=== PATIENT | female | born 1980 | race Caucasian/White ===

== ENCOUNTER 2019-10-16 16:43 | Emergency (ER) | payer BC ==
[~2019-10-16] VITALS: Ht 170.2 cm; Wt 97.5 kg
[2019-10-16 17:23] LABS: URINE BILIRUBIN NEGATIVE (Negative); URINE BLOOD 3+ (Negative); URINE CLARITY SL CLOUDY; URINE COLOR YELLOW; URINE GLUCOSE-RANDOM NEGATIVE (Negative); URINE KETONES NEGATIVE (Negative); URINE LEUKOCYTES-REFLEX NEGATIVE (Negative); URINE NITRITE-REFLEX NEGATIVE (Negative); URINE PROTEIN NEGATIVE (Negative); URINE SPECIFIC GRAVITY 1.025 (1.005-1.030); URINE UROBILINOGEN 0.2 E.U./dl (0.2-1.0)
[2019-10-16 17:29] LABS: BACTERIA-REFLEX >30 Many /HPF (None Seen); CASTS None Seen /LPF (None Seen); CRYSTALS None Seen /LPF (None Seen); MUCUS 0-3 Light strn/LPF (None Seen); SQUAMOUS 0-3 Few /LPF (0-3); URINE RBC >20 Many /HPF (0-2); URINE WBC-REFLEX 0-5 Rare /HPF (0-5)
[2019-10-16 18:17] LABS: INFLUENZA A ANTIGEN Negative (Negative); INFLUENZA B ANTIGEN Negative (Negative)
[2019-10-16 18:27] LABS: ABSOLUTE BASOPHILS 0.1 thou/uL (0.0-0.2); ABSOLUTE EOSINOPHILS 0.2 thou/uL (0.0-0.7); ABSOLUTE LYMPHOCYTES 2.5 thou/uL (0.8-5.3); ABSOLUTE MONOCYTES 0.8 thou/uL (0.0-1.2); ABSOLUTE NEUTROPHILS 5.6 thou/uL (1.6-8.1); BASOPHILS 0.7 %; EOSINOPHILS 2.2 %; HEMATOCRIT 39.6 % (37.0-47.0); HEMOGLOBIN 13.6 gm/dL (12.0-15.0); LYMPHOCYTES 27.1 %; MCH 31.2 pg (26.0-34.0); MCHC 34.4 g/dL (28.0-37.0); MCV 90.7 fL (80.0-100.0); MONOCYTES 8.7 %; MPV 9.6 fl. (7.2-11.1); NUCLEATED RBCS 0 /100WBC; PLATELET COUNT* 222 thou/uL (150-400); POLYS 61.3 %; RBC 4.36 mil/uL (4.20-5.00); RDW-CV 13.3 % (10.5-14.5); WBC 9.2 thou/uL (4.0-11.0)
[2019-10-16 18:35] LABS: CALCIUM 8.9 mg/dL (8.5-10.1); CREATININE 0.9 mg/dL (0.6-1.3); POTASSIUM 3.6 mmol/L (3.5-5.1)
[2019-10-16] MEDS ORDERED: ZOFRAN ODT4 MG PO (18:37)
[2019-10-16] MEDS ORDERED: ACIPHEX 20 MG T20 MG PO (18:37)
[2019-10-16 18:40] LABS: ALBUMIN 3.4 g/dL (3.4-5.0); TOTAL BILIRUBIN 0.2 mg/dL (<0.1-1.0); TOTAL PROTEIN 6.5 g/dL (6.4-8.2)
[2019-10-16 19:25] VITALS: BP 129/83
== END 2019-10-16 19:26 | disposition home or self-care (01) ==
LOC: M.ERS 16:43
PROVIDERS: Emergency Medicine
DX: K52.9 Noninfective gastroenteritis and colitis, unspecified (principal)

== ENCOUNTER 2020-06-15 07:23 | Emergency (ER) | payer BC ==
[~2020-06-15] VITALS: Ht 170.2 cm; Wt 88.5 kg
[~2020-06-15 07:23] MED LIST: ACIPHEX 20 MG T20 MG PO; ZOFRAN ODT4 MG PO
[2020-06-15] MEDS ORDERED: PREDNISONE 20 M20 M1 PO (08:47)
[2020-06-15] MEDS ORDERED: VENTOLIN HFA 1818 GM INH (08:47)
[2020-06-15] MEDS ORDERED: ZPAK PO (08:47)
[2020-06-15 09:05] VITALS: BP 125/75
== END 2020-06-15 09:05 | disposition home or self-care (01) ==
LOC: M.ERS 07:23
DX: J40 Bronchitis, not specified as acute or chronic (principal); Z20.828 Contact with and (suspected) exposure to other viral communicable diseases

== ENCOUNTER 2020-10-07 17:51 | Emergency (ER) | payer BC ==
[~2020-10-07] VITALS: Ht 170.2 cm; Wt 90.7 kg
[~2020-10-07 17:51] MED LIST changes: +PREDNISONE 20 M20 M1 PO; +VENTOLIN HFA 1818 GM INH; +ZPAK PO
[2020-10-07] MEDS ORDERED: TESSALON PERLE100 M1 PO (18:53)
[2020-10-07] MEDS ORDERED: ZOFRAN ODT4 MG DISSOLVE (18:53)
[2020-10-07 19:00] VITALS: BP 132/79
== END 2020-10-07 19:00 | disposition home or self-care (01) ==
LOC: M.ERS 17:51
DX: U07.1 COVID-19 (principal); F17.210 Nicotine dependence, cigarettes, uncomplicated

== ENCOUNTER 2021-04-10 20:03 | Emergency (ER) | payer BC ==
[~2021-04-10] VITALS: Ht 170.2 cm; Wt 93.0 kg
[~2021-04-10 20:03] MED LIST changes: +TESSALON PERLE100 M1 PO; +ZOFRAN ODT4 MG DISSOLVE
[2021-04-10 21:23] LABS: ABSOLUTE BASOPHILS 0.1 thou/uL (0.0-0.2); ABSOLUTE EOSINOPHILS 0.1 thou/uL (0.0-0.7); ABSOLUTE LYMPHOCYTES 1.7 thou/uL (0.8-5.3); ABSOLUTE MONOCYTES 0.8 thou/uL (0.0-1.2); ABSOLUTE NEUTROPHILS 7.1 thou/uL (1.6-8.1); BASOPHILS 0.6 %; EOSINOPHILS 0.9 %; HEMATOCRIT 40.2 % (37.0-47.0); HEMOGLOBIN 13.8 gm/dL (12.0-15.0); LYMPHOCYTES 17.8 %; MCH 30.5 pg (26.0-34.0); MCHC 34.2 g/dL (28.0-37.0); MCV 89.1 fL (80.0-100.0); MONOCYTES 7.7 %; MPV 9.3 fl. (7.2-11.1); NUCLEATED RBCS 0 /100WBC; PLATELET COUNT* 250 thou/uL (150-400); RBC 4.51 mil/uL (4.20-5.00); RDW-CV 13.3 % (10.5-14.5); WBC 9.7 thou/uL (4.0-11.0)
[2021-04-10] MEDS ORDERED: BUTALB-APAP-CA1 EACH PO (21:34)
[2021-04-10 21:40] LABS: CALCIUM 8.8 mg/dL (8.5-10.1); CREATININE 1.1 mg/dL (0.6-1.3); POTASSIUM 3.6 mmol/L (3.5-5.1)
[2021-04-10 21:45] LABS: ALBUMIN 3.6 g/dL (3.4-5.0); TOTAL PROTEIN 6.9 g/dL (6.4-8.2)
[2021-04-10 21:57] LABS: TOTAL BILIRUBIN 0.3 mg/dL (<0.1-1.0)
[2021-04-10 22:40] LABS: ESR (SEDRATE) 7 mm/hr (0-20)
[2021-04-10 23:32] VITALS: BP 110/67
== END 2021-04-10 23:32 | disposition home or self-care (01) ==
LOC: M.ERS 20:03
PROVIDERS: Physician Assistant
DX: R51.9 Headache, unspecified (principal); Z90.49 Acquired absence of other specified parts of digestive tract

== ENCOUNTER 2021-11-01 14:19 | Emergency (ER) | payer BC ==
[~2021-11-01] VITALS: Ht 170.2 cm; Wt 95.3 kg
[~2021-11-01 14:19] MED LIST changes: +BUTALB-APAP-CA1 EACH PO
[2021-11-01 19:16] VITALS: BP 144/98
== END 2021-11-01 19:16 | disposition left against medical advice (07) ==
LOC: M.ERS 14:19
DX: U07.1 COVID-19 (principal); R07.89 Other chest pain; R25.1 Tremor, unspecified; Z53.21 Procedure and treatment not carried out due to patient leaving prior to being seen by health care provider